=== PATIENT | female | born 1995 | race Caucasian/White ===

== ENCOUNTER 2016-12-22 11:09 | Emergency (ER) | payer BC ==
[2016-12-22 13:56] VITALS: BP 98/56
--- NOTE | 2016-12-22 14:27 | UC ---
Respiratory Complaint HPI - HPI Summary HPI Summary: cough, mild ST, sinus congestion. Ears feel plugged. Poor appetite, mild headache. Symptoms for a week. No asthma. No fever. Nonsmoker. At [facility] - History of Current Complaint Chief Complaint: UCRespiratory Stated Complaint: THROAT,EARS,CONGESTION Time Seen by Provider: 12/22/16 13:53 Hx Obtained From: Patient Hx Last Menstrual Period: 12/18/16 Onset/Duration: Gradual Onset, Lasting Weeks - 1 Timing: Constant Severity Initially: Mild Severity Currently: Mild Character: Cough: Productive Aggravating Factors: Exertion, Recumbent Position Alleviating Factors: Nothing Associated Signs And Symptoms: Positive: Chills, URI, Nasal Congestion, Hoarseness - Risk Factors Pulmonary Embolism Risk Factors: Negative Cardiac Risk Factors: Negative Pseudomonas Risk Factors: Negative Tuberculosis Risk Factors: Negative - Allergies/Home Medications Allergies/Adverse Reactions: Allergies Allergy/AdvReac Type Severity Reaction Status Date / Time No Known Allergies Allergy Verified 12/22/16 13:53 PMH/Surg Hx/FS Hx/Imm Hx Previously Healthy: Yes - Surgical History Surgical History: None - Family History Known Family History: Negative: Diabetes - Social History Occupation: Student Lives: Alone - dorm Alcohol Use: Occasionally Substance Use Type: None Smoking Status (MU): Never Smoked Tobacco - Immunization History Most Recent Influenza Vaccination: Not the Season Review of Systems Constitutional: Negative Skin: Negative Eyes: Negative ENT: Sore Throat, Nasal Discharge Respiratory: Cough Cardiovascular: Negative Gastrointestinal: Negative Genitourinary: Negative Motor: Negative Neurovascular: Negative Musculoskeletal: Negative Neurological: Negative Psychological: Negative All Other Systems Reviewed And Are Negative: Yes Physical Exam Triage Information Reviewed: Yes Appearance: Well-Appearing, No Pain Distress, Well-Nourished Vital Signs: Initial Vital Signs Temp 98.5 F 12/22/16 13:52 Pulse 80 12/22/16 13:52 Resp 16 12/22/16 13:52 BP 98/56 12/22/16 13:52 Pulse Ox 100 12/22/16 13:52 Vital Signs Reviewed: Yes Eye Exam: Normal Eyes: Positive: Conjunctiva Clear ENT: Positive: Hearing grossly normal, Pharyngeal erythema - mild, Nasal congestion, TMs normal, Muffled/hoarse voice - hoarse. Negative: Tonsillar swelling, Tonsillar exudate, Trismus Neck exam: Normal Neck: Positive: Supple Respiratory Exam: Normal Cardiovascular Exam: Normal Musculoskeletal Exam: Normal Neurological Exam: Normal Psychological Exam: Normal Skin Exam: Normal UC Diagnostic Evaluation - Laboratory O2 Sat by Pulse Oximetry: 100 Respiratory Course/Dx - Differential Dx/Diagnosis Differential Diagnosis/HQI/PQRI: Bronchitis, Influenza, Lower Resp Infection, Sinusitis Provider Diagnoses: URI Discharge - Discharge Plan Condition: Stable Disposition: HOME Prescriptions: Benzonatate CAP* [Tessalon CAP*] 100 mg PO TID PRN #30 cap PRN Reason: Cough Meloxicam [Mobic] 7.5 mg PO BID PRN #20 tab PRN Reason: Pain Pseudoephedrine HCl [Sudafed 12 Hour] 120 mg PO BID PRN #20 tab PRN Reason: congestion, ear pain Patient Education Materials: Upper Respiratory Infection (ED) Referrals: Non Staff,Doctor [Primary Care Provider] -
== END 2016-12-22 14:36 | disposition home or self-care (01) ==
LOC: UCCORT 11:09
DX: J06.9 Acute upper respiratory infection, unspecified (principal)
CPT/HCPCS: 99212; G0463

== ENCOUNTER 2017-03-22 13:28 | Emergency (ER) | payer BC ==
--- NOTE | 2017-03-22 16:24 | UC ---
Head Injury HPI - History Of Current Complaint Chief Complaint: UCHeadInjury Stated Complaint: HEAD INJURY,EYE COMPLAINT Time Seen by Provider: 03/22/17 16:18 Hx Obtained From: Patient Hx Last Menstrual Period: 03/16/17 ?: No Onset/Duration: Sudden Onset - fell last night at 2 AM, following drinking., Still Present Severity Currently: Moderate Severity Initially: Severe Character: Throbbing Aggravating Factor(s): Nothing Alleviating Factor(s): Nothing Associated Signs And Symptoms: Positive: Memory Loss - from probable excessive alcohol.. Negative: LOC (Time In Secs./Mins/Hrs) - Risk Factors SDH Risk Factor: Recent Trauma - Fell on face. - Allergies/Home Medications Allergies/Adverse Reactions: Allergies Allergy/AdvReac Type Severity Reaction Status Date / Time No Known Allergies Allergy Verified 03/22/17 15:01 Home Medications: Home Medications Acetaminophen TAB* [Tylenol TAB*] 650 mg PO Q4H PRN 03/22/17 [History Confirmed 03/22/17] PMH/Surg Hx/FS Hx/Imm Hx Previously Healthy: Yes Endocrine History Of: Denies: Thyroid Disease Respiratory History Of: Denies: Asthma Psychological History Of: Reports: Anxiety - Surgical History Surgical History: None - Family History Known Family History: Negative: Cardiac Disease, Hypertension, Diabetes - Social History Occupation: Student Lives: Alone Alcohol Use: Occasionally Substance Use Type: None Smoking Status (MU): Never Smoked Tobacco Have You Smoked in the Last Year: No - Immunization History Most Recent Influenza Vaccination: Not the 2015/2016 Season Review of Systems Skin: Bruising - with swelling over the left eye with abrasion over the corner of the eye. All Other Systems Reviewed And Are Negative: Yes Physical Exam Triage Information Reviewed: Yes Appearance: Well-Appearing, Well-Nourished, Pain Distress - very mild., Signs of Trauma - abrasion over left cheek and swelling in the eyelids with ecchymosis. Vital Signs: Initial Vital Signs Temp 98.4 F 03/22/17 14:54 Pulse 74 03/22/17 14:54 Resp 12 03/22/17 14:54 BP 107/63 03/22/17 14:54 Pulse Ox 100 03/22/17 14:54 Vital Signs Reviewed: Yes Eye Exam: Normal Eyes: Positive: Conjunctiva Clear ENT: Positive: Pharynx normal, TMs normal Neck: Positive: Supple, Nontender - on spinous processes. Respiratory Exam: Normal Cardiovascular Exam: Normal Musculoskeletal Exam: Normal Neurological Exam: Normal Psychological Exam: Normal Skin: Positive: Other - abrasion over the left cheek and swelling and ecchymosis over the left eye Head Injury Course/Dx - Differential Dx/Diagnosis Differential Diagnosis/HQI/PQRI: Contusion, Hematoma, Laceration Provider Diagnoses: Contusion face,. Abrasion face. Hematoma eyelid. Discharge - Discharge Plan Condition: Stable Disposition: HOME Patient Education Materials: Black Eye (ED), Facial Contusion (ED) Additional Instructions: Ice for 48 hours. Antibiotic ointment or vaseline over the abrasion on the left cheek until it heals. Neutragena Baby Pure and Free sunscreen for your face and coppertone Waterbabies Pure and simple for your body. Images Head: 1 - abrasion 2 - large bruising and swelling
[2017-03-22 17:29] VITALS: BP 102/70
--- NOTE | 2017-03-22 17:29 | RAD ---
INDICATION: Trauma to the left orbit. Requisition indicates the patient fell the previous night. COMPARISON: None. TECHNIQUE: Routine 4 views of the facial bones were obtained. REPORT: There are no interruptions of the orbital margins bilaterally. The maxillary and bilateral zygomatic bones are intact. No air-fluid levels evident in the paranasal sinuses. IMPRESSION: No radiographically apparent fracture or dislocation. If the patient's symptoms persist, follow-up imaging is recommended.
== END 2017-03-22 17:30 | disposition home or self-care (01) ==
LOC: UCCORT 13:28
DX: S00.83XA Contusion of other part of head, initial encounter (principal); S00.81XA Abrasion of other part of head, initial encounter; S00.12XA Contusion of left eyelid and periocular area, initial encounter; W19.XXXA Unspecified fall, initial encounter; Y93.9 Activity, unspecified; Y92.9 Unspecified place or not applicable; F41.9 Anxiety disorder, unspecified
CPT/HCPCS: 70150; 99212; G0463